=== PATIENT | male | born 1995 | race American Indian/Alaskan Native ===

== ENCOUNTER 2017-04-28 03:36 | Emergency (ER) | payer MEDICAID ==
[~2017-04-28 03:36] MED LIST: CEPH-376 PO; OXYC5CAP4 PO
== END 2017-04-28 03:49 | disposition left against medical advice (07) ==
LOC: ED 03:43
DX: F10.129 Alcohol abuse with intoxication, unspecified (principal); Z53.21 Procedure and treatment not carried out due to patient leaving prior to being seen by health care provider

== ENCOUNTER 2018-09-25 23:59 | Emergency (ER) | payer MEDICAID ==
[~2018-09-25] VITALS: Ht 172.7 cm; Wt 75.0 kg
[~2018-09-25 23:59] MED LIST changes: +OXYC5CAP2 PO; -OXYC5CAP4 PO
[2018-09-26] MEDS ORDERED: ONDANSETRON 2MG/ML, 2ML ONE (00:20)
[2018-09-26 00:26] LABS: BASOPHILS # (AUTO) 0.03 x10^3/uL (0-0.1); BASOPHILS % (AUTO) 0 % (0-1); EOSINOPHILS # (AUTO) 0.09 x10^3/uL (0-0.4); EOSINOPHILS % (AUTO) 1 % (1-7); LYMPHOCYTES # (AUTO) 0.97 x10^3/uL (1-3.4); LYMPHOCYTES % (AUTO) 10 % (22-44); MD NO; MEAN CORPUSCULAR HEMOGLOBIN 31.2 pg (27.5-34.5); MEAN CORPUSCULAR HGB CONC 34.6 g/dL (33.2-36.2); MEAN CORPUSCULAR VOLUME 90.2 fL (81-97); MEAN PLATELET VOLUME 7.5 fL (7.4-10.4); MONOCYTES # (AUTO) 0.33 x10^3/uL (0.2-0.8); MONOCYTES % (AUTO) 4 % (2-9); NEUTROPHILS # (AUTO) 8.05 x10^3/uL (1.8-6.8); NEUTROPHILS % (AUTO) 85 % (42-75); PLATELET COUNT 304 x10^3/uL (130-400); RED BLOOD COUNT 4.56 x10^6/uL (4.38-5.82); RED CELL DISTRIBUTION WIDTH 14.8 % (9.4-14.8)
[2018-09-26] MEDS ORDERED: ONDANSETRON 2MG/ML, 2ML IVPush ONE (00:30)
[2018-09-26 00:38] LABS: ALBUMIN 3.9 g/dL (3.4-5.0); ANION GAP 12 mmol/L (5-15); CALCIUM 8.1 mg/dL (8.5-10.1); CHLORIDE 109 mmol/L (98-107); CREATININE 1.06 mg/dL (0.7-1.3)
[2018-09-26 05:51] VITALS: BP 108/72
== END 2018-09-26 05:53 | disposition home or self-care (01) ==
LOC: ED 09-26 05:49
DX: S00.83XA Contusion of other part of head, initial encounter (principal); F10.120 Alcohol abuse with intoxication, uncomplicated; G31.2 Degeneration of nervous system due to alcohol; X58.XXXA Exposure to other specified factors, initial encounter; Y93.89 Activity, other specified; Y92.89 Other specified places as the place of occurrence of the external cause; Y99.8 Other external cause status
CPT/HCPCS: 36415; 70450; 70486; 72125; 80048; 80307; 82040; 85025; 96374; 99284; J2405

== ENCOUNTER 2020-04-02 04:29 | Emergency (ER) | payer MEDICAID ==
[~2020-04-02] VITALS: Ht 165.1 cm; Wt 75.0 kg
[2020-04-02] MEDS ORDERED: LIDOCAINE 1%-EPI 1:100K, 20ML SQ ONE (05:30)
--- NOTE | 2020-04-02 05:32 | NUR ---
PT TO CT AT THIS TIME
[2020-04-02] MEDS ORDERED: LIDOCAINE 1%-EPI 1:100K, 20ML ONE (05:35)
--- NOTE | 2020-04-02 06:56 | NUR ---
Report given to SARIAH Whitmore. Care transferred
--- NOTE | 2020-04-02 07:02 | NUR ---
Pt resting on gurney asleep on right lateral side. NIBP cuff and continous pulse ox monitors on pt. Bedrails up x 2 for safety measures. Call light within reach. NADN. Pt arousable to voice. No needs expressed at this time.
--- NOTE | 2020-04-02 08:22 | NUR ---
Pt escorted by security to d/c. Pt states to ED RN, "I need you to get my car...I was picked up by the police...I need you to take me to [place]...You need to find out where my car was...the police brought me in here...you're not doing what you need to do to find my car.." ED RN offered a taxi voucher to pt and offered pt to use a phone to call police dept to find out where pt's car was. Pt did not provide an address for the taxi voucher to ED RN. Pt refused to d/c. Pt provided d/c paperwork. Pt escorted from ED by security and left with all personal belongings. NADN. Pt ambulated with steady gait and balance and pt [id number].
[2020-04-02 08:25] VITALS: BP 107/57
== END 2020-04-02 08:27 | disposition home or self-care (01) ==
LOC: ED 06:15
DX: S02.2XXA Fracture of nasal bones, initial encounter for closed fracture (principal); S02.85XA Fracture of orbit, unspecified, initial encounter for closed fracture; S01.81XA Laceration without foreign body of other part of head, initial encounter; F10.129 Alcohol abuse with intoxication, unspecified; W19.XXXA Unspecified fall, initial encounter; Y93.89 Activity, other specified; Y92.89 Other specified places as the place of occurrence of the external cause; Y99.8 Other external cause status; Y90.0 Blood alcohol level of less than 20 mg/100 ml
CPT/HCPCS: 12051; 70450; 99284